=== PATIENT | female | born 1990 ===

== ENCOUNTER 2016-12-30 10:07 | Emergency (ER) | payer MEDICAID, OTHER ==
[2016-12-30 10:26] VITALS: BP 115/78; PULSE 82; RESP 18; TEMP 97.8; O2SAT 97
[2016-12-30] MEDS ORDERED: Lidocaine/Prilocaine 2.5%-2.5% Cream (5 gm) TOP STA (10:53)
--- NOTE | 2016-12-30 12:04 | C.PDOC ---
History Of Present Illness Pt c/o painful lesion on right inner thigh that she noticed yesterday. Time Seen by Provider: 12/30/16 10:38 Chief Complaint (Nursing): Abnormal Skin Integrity History Per: Patient Onset/Duration Of Symptoms: Days (1) Current Symptoms Are (Timing): Still Present Location Of Injury: Right: Thigh Quality Of Symptoms: Painful, Swollen Severity: Mild Additional History Per: Prior Records Past Medical History Reviewed: Historical Data, Nursing Documentation, Vital Signs Vital Signs: Last Vital Signs Temp 97.8 F 12/30/16 10:23 Pulse 82 12/30/16 10:23 Resp 18 12/30/16 10:23 BP 115/78 12/30/16 10:23 Pulse Ox 97 12/30/16 10:23 - Medical History PMH: Kidney Stones Family History: States: Unknown Family Hx - Social History Hx Tobacco Use: No Hx Alcohol Use: No Hx Substance Use: No - Immunization History Hx Tetanus Toxoid Vaccination: Yes Hx Influenza Vaccination: No Hx Pneumococcal Vaccination: No Review Of Systems Except As Marked, All Systems Reviewed And Found Negative. Constitutional: Negative for: Fever, Chills, Weakness Cardiovascular: Negative for: Chest Pain Respiratory: Negative for: Shortness of Breath Gastrointestinal: Negative for: Vomiting, Abdominal Pain Musculoskeletal: Negative for: Neck Pain Neurological: Negative for: Weakness, Numbness, Seizures, Altered Mental Status Physical Exam - Physical Exam Appears: Non-toxic, No Acute Distress Skin: Normal Color, Warm, Dry, No Rash Head: Atraumatic, Normacephalic Eye(s): bilateral: Normal Inspection, PERRL, EOMI Neck: Normal ROM, Supple Gastrointestinal/Abdominal: Soft, No Tenderness Extremity: Normal ROM, Other (very small abscess on right inner this with scab formation and surrounding erythema. ) Neurological/Psych: Oriented x3, Normal Motor, Normal Sensation ED Course And Treatment - Laboratory Results Urine POC: Negative O2 Sat by Pulse Oximetry: 97 Pulse Ox Interpretation: Normal Reassessment Condition: Improved - Incision & Drainage Of Abscess Prep Used: Betadine Procedure: Incised W/Scalpel Blade#: (11), Drained Pus, Cultures Obtained And Sent To Lab Disposition Counseled Patient/Family Regarding: Diagnosis, Need For Followup, Rx Given - Disposition Referrals: Abdulaziz Villa MD [Staff Provider] - Disposition: HOME/ ROUTINE Disposition Time: 12:05 Condition: IMPROVED Additional Instructions: Follow up with your doctor within 2-3 days. Return to the ER if you develop fever, chills, area of infection is getting bigger, worsening o symptoms or if you have any other concerns. Prescriptions: Sulfamethoxazole/Trimethoprim [Bactrim DS 800 mg-160 mg] 1 tab PO BID #14 tab Instructions: Abscess Incision and Drainage (ED) - Clinical Impression Clinical Impression: Abscess of right thigh
== END 2016-12-30 12:15 | disposition home or self-care (01) ==
LOC: C.ER 10:07
DX: L02.415 Cutaneous abscess of right lower limb (principal)

== ENCOUNTER 2017-07-14 10:04 | Emergency (ER) | payer MEDICAID, OTHER ==
[2017-07-14 10:09] VITALS: BP 118/78; PULSE 88; RESP 20; TEMP 98.1; O2SAT 99
--- NOTE | 2017-07-14 10:53 | RAD ---
HISTORY: r/o infiltrate COMPARISON: None available. TECHNIQUE: Chest PA and lateral FINDINGS: Examination limited by habitus. LUNGS: No focal consolidation. Please note that chest x-ray has limited sensitivity for the detection of pulmonary masses. PLEURA: No significant pleural effusion identified. No definite pneumothorax . CARDIOVASCULAR: Heart size appears within normal limits. OSSEOUS STRUCTURES: Mild degenerative changes. VISUALIZED UPPER ABDOMEN: Unremarkable. OTHER FINDINGS: None. IMPRESSION: No focal consolidation, significant pleural effusion, or definite pneumothorax identified.
--- NOTE | 2017-07-14 13:59 | C.PDOC ---
History Of Present Illness 26 y/o female presents to ED with complaints of productive cough with yellow phlegm for 3 days. Patient reports chills and nausea but denies sick contacts, vomiting, diarrhea or any other complaints at this time. Time Seen by Provider: 07/14/17 10:12 Chief Complaint (Nursing): Cough, Cold, Congestion History Per: Patient History/Exam Limitations: no limitations Onset/Duration Of Symptoms: Days Current Symptoms Are (Timing): Still Present Past Medical History Reviewed: Historical Data, Nursing Documentation, Vital Signs Vital Signs: Last Vital Signs Temp 98.1 F 07/14/17 10:07 Pulse 88 07/14/17 10:07 Resp 20 07/14/17 10:07 BP 118/78 07/14/17 10:07 Pulse Ox 99 07/14/17 13:59 - Medical History PMH: Kidney Stones Surgical History: No Surg Hx Family History: States: No Known Family Hx - Social History Hx Tobacco Use: No Hx Alcohol Use: No Hx Substance Use: No - Immunization History Hx Tetanus Toxoid Vaccination: Yes Hx Influenza Vaccination: No Hx Pneumococcal Vaccination: No Review Of Systems Except As Marked, All Systems Reviewed And Found Negative. Constitutional: Positive for: Chills. Negative for: Fever Cardiovascular: Negative for: Chest Pain Respiratory: Positive for: Cough. Negative for: Shortness of Breath Gastrointestinal: Positive for: Nausea. Negative for: Vomiting Skin: Negative for: Rash Neurological: Negative for: Weakness, Numbness Physical Exam - Physical Exam Appears: Non-toxic Skin: Warm, Dry, No Rash Head: Atraumatic, Normacephalic Eye(s): bilateral: Normal Inspection Nose: Normal Oral Mucosa: Moist Throat: Normal, No Erythema Neck: Normal ROM, Supple Chest: Symmetrical Cardiovascular: Rhythm Regular, No Murmur Respiratory: Normal Breath Sounds, No Rales, No Rhonchi, No Wheezing Gastrointestinal/Abdominal: Soft, No Tenderness, No Guarding, No Rebound Neurological/Psych: Oriented x3 ED Course And Treatment O2 Sat by Pulse Oximetry: 99 (RA) Pulse Ox Interpretation: Normal Disposition - Disposition Disposition: HOME/ ROUTINE Disposition Time: 10:50 Condition: GOOD Additional Instructions: Thank you for letting us take care of you today. Your provider was Dr. Navarrete. You were treated for an upper respiratory infection. The emergency medical care you received today was directed at your acute symptoms. If you were prescribed any medication, please fill it and take as directed. It may take several days for your symptoms to resolve. Return to the Emergency Department if your symptoms worsen, do not improve, or if you have any other problems. Please contact your doctor or call one of the physicians/clinics you have been referred to that are listed on the Patient Visit Information form that is included in your discharge packet. Bring any paperwork you were given at discharge with you along with any medications you are taking to your follow up visit. Our treatment cannot replace ongoing medical care by a primary care provider (PCP) outside of the emergency department. Thank you for allowing the [facility] team to be part of your care today. Followup with your doctor in 2-3 days for re-evaluation and further management. Prescriptions: Azithromycin [Zithromax] 250 mg PO DAILY #6 tab Instructions: Upper Respiratory Infection (ED) Forms: [employer] (Bhutanese), Work Excuse - Clinical Impression Clinical Impression: Upper respiratory infection - Scribe Statement The provider has reviewed the documentation as recorded by the Mahesh Rowe All medical record entries made by the Dorianibmame were at my direction and personally dictated by me. I have reviewed the chart and agree that the record accurately reflects my personal performance of the history, physical exam, medical decision making, and the department course for this patient. I have also personally directed, reviewed, and agree with the discharge instructions and disposition.
== END 2017-07-14 11:20 | disposition home or self-care (01) ==
LOC: C.ER 10:04
DX: J06.9 Acute upper respiratory infection, unspecified (principal)

== ENCOUNTER 2018-01-25 12:44 | Emergency (ER) | payer MEDICAID, OTHER ==
[2018-01-25 13:12] VITALS: BP 105/74; PULSE 82; RESP 18; TEMP 98.2; O2SAT 100
== END 2018-01-25 15:24 | disposition left against medical advice (07) ==
LOC: C.ER 12:44
DX: Z02.89 Encounter for other administrative examinations (principal); R10.9 Unspecified abdominal pain

== ENCOUNTER 2018-02-28 09:58 | Emergency (ER) | payer MEDICAID, OTHER ==
[2018-02-28 11:24] LABS: HCG,QUALITATIVE URINE NEGATIVE (NEGATIVE)
[2018-02-28 11:36] LABS: BASO # 0.1 K/uL (0.0-0.2); BASO % 1.1 % (0.0-2.0); EOS # 0.2 K/uL (0.0-0.7); EOS % 4.3 % (0.0-4.0); HEMOGLOBIN 12.4 g/dL (11.0-16.0); LYMPH # 1.5 K/uL (1.0-4.3); LYMPH % 30.5 % (20.0-40.0); MEAN CORPUSCULAR HEMOGLOBIN 28.8 pg (27.0-31.0); MEAN CORPUSCULAR HGB CONC 34.3 g/dL (33.0-37.0); MONO # 0.3 K/uL (0.0-0.8); MONO % 5.5 % (0.0-10.0); NEUT # 2.8 K/uL (1.8-7.0); NEUT % 58.6 % (50.0-75.0); NRBC % 0.1 % (0.0-2.0); RBC 4.31 Mil/uL (3.80-5.20); RED CELL DISTRIBUTION WIDTH 14.2 % (11.5-14.5); WHITE BLOOD COUNT 4.9 K/uL (4.8-10.8)
--- NOTE | 2018-02-28 11:40 | RAD ---
PROCEDURE: CHEST RADIOGRAPH, 1 VIEW HISTORY: Abdominal pain COMPARISON: Comparison chest 07/14/2017. FINDINGS: LUNGS: Low lung volumes with crowded bronchovascular markings and mild bibasilar atelectasis. PLEURA: No pneumothorax or pleural fluid seen. CARDIOVASCULAR: Normal. OSSEOUS STRUCTURES: No significant abnormalities. VISUALIZED UPPER ABDOMEN: Normal. OTHER FINDINGS: None. IMPRESSION: Low lung volumes with crowded bronchovascular markings and mild bibasilar atelectasis.
[2018-02-28 11:45] LABS: ALB/GLOB RATIO 1.5 (1.0-2.1); ALBUMIN 4.5 g/dL (3.5-5.0); ALT/SGPT 8 U/L (9-52); AST/SGOT 21 U/L (14-36); BLOOD UREA NITROGEN 8 mg/dL (7-17); CALCIUM 9.2 mg/dl (8.6-10.4); GFR AFRICAN-AMERICAN > 60; GFR NON-AFRICAN AMERICAN > 60; LIPASE 87 U/L (23-300)
[2018-02-28 11:48] LABS: SQUAMOUS EPITHIAL 5 /hpf (0-5); URINE BACTERIA RARE (<OCC); URINE BILIRUBIN NEGATIVE (NEGATIVE); URINE BLOOD NEGATIVE (NEGATIVE); URINE CLARITY Hazy (Clear); URINE COLOR Yellow (YELLOW); URINE GLUCOSE (UA) NORMAL (Normal); URINE LEUKOCYTE ESTERASE TRACE Leu/uL (Negative); URINE PROTEIN NEGATIVE (NEGATIVE); URINE UROBILINOGEN NORMAL mg/dL (0.2-1.0)
[2018-02-28 13:04] VITALS: BP 95/64; PULSE 72; RESP 18; TEMP 98; O2SAT 100
--- NOTE | 2018-02-28 13:21 | C.PDOC ---
History Of Present Illness 27-year-old female, presents to the emergency department with complaints of sharp left-sided abdominal pain, that started last night. Pain worsens with movement. Patient denies any nausea, vomiting or diarrhea, dysuria or any other associated symptoms. No other complaints at this time. Time Seen by Provider: 02/28/18 10:35 Chief Complaint (Nursing): Abdominal Pain History Per: Patient History/Exam Limitations: no limitations Current Symptoms Are (Timing): Still Present Severity: Moderate Past Medical History Reviewed: Historical Data, Nursing Documentation, Vital Signs Vital Signs: Last Vital Signs Temp 98.0 F 02/28/18 13:03 Pulse 72 02/28/18 13:03 Resp 18 02/28/18 13:03 BP 95/64 L 02/28/18 13:03 Pulse Ox 100 02/28/18 13:57 - Medical History PMH: Kidney Stones Family History: States: No Known Family Hx - Social History Hx Tobacco Use: No Hx Alcohol Use: No Hx Substance Use: No - Immunization History Hx Tetanus Toxoid Vaccination: Yes Hx Influenza Vaccination: No Hx Pneumococcal Vaccination: No Review Of Systems Constitutional: Negative for: Fever Respiratory: Negative for: Shortness of Breath Gastrointestinal: Positive for: Abdominal Pain. Negative for: Nausea, Vomiting Musculoskeletal: Negative for: Back Pain Neurological: Negative for: Weakness, Numbness, Headache, Dizziness Physical Exam - Physical Exam Appears: Non-toxic, No Acute Distress Skin: Normal Color, Warm, Dry, No Rash Head: Normacephalic Eye(s): bilateral: PERRL Nose: Normal Oral Mucosa: Moist Lips: Normal Appearing Neck: Normal ROM Chest: Symmetrical, No Tenderness, No Ecchymosis, No Subcutaneous Emphysema Cardiovascular: Rhythm Regular, No Murmur Respiratory: Normal Breath Sounds, No Accessory Muscle Use Gastrointestinal/Abdominal: Bowel Sounds (active), Soft, No Tenderness, No Guarding, No Rebound Back: Normal Inspection, No CVA Tenderness Extremity: Normal ROM, No Deformity, No Swelling Neurological/Psych: Oriented x3, Normal Speech, Normal Motor Gait: Steady ED Course And Treatment - Laboratory Results Result Diagrams: 02/28/18 11:28 02/28/18 11:28 O2 Sat by Pulse Oximetry: 100 (RA) Pulse Ox Interpretation: Normal Medical Decision Making Medical Decision Making: Plan: * Bloodwork * Chest X-Ray * UA * Reassess and Disposition Labs and physical exam is negative at this time. Results were informed and given to the patient. On re-exam, the patient reports improvement of symptoms. Lungs are CTA, heart is RRR, abdomen is soft, non-tender and tolerating PO well. Ambulatory in the ED with steady gait. Disposition - Disposition Referrals: [facility] at [facility] [Outside] Abdulaziz Villa MD [Staff Provider] - Disposition: HOME/ ROUTINE Disposition Time: 13:00 Condition: GOOD Additional Instructions: Follow up with the medical doctor within 1-2 days. Return if worsened. Prescriptions: Naproxen [Naprosyn] 500 mg PO BID #20 tab Instructions: Costochondritis Forms: [facility] (Afghan), Work Excuse - Clinical Impression Clinical Impression: Abdominal wall pain - Scribe Statement The provider has reviewed the documentation as recorded by the Scribe (Jimi Mary) All medical record entries made by the Scribe were at my direction and personally dictated by me. I have reviewed the chart and agree that the record accurately reflects my personal performance of the history, physical exam, medical decision making, and the department course for this patient. I have also personally directed, reviewed, and agree with the discharge instructions and disposition.
== END 2018-02-28 14:14 | disposition home or self-care (01) ==
LOC: C.ER 09:58
DX: R10.9 Unspecified abdominal pain (principal)

== ENCOUNTER 2018-11-07 10:51 | Emergency (ER) | payer SELFPAY ==
[2018-11-07 11:20] VITALS: O2SAT 100
[2018-11-07] MEDS ORDERED: Alum-Mag Hydrox-Simethicone Susp (30 mL) PO STA (11:37)
[2018-11-07 12:08] LABS: HCG,QUALITATIVE URINE NEGATIVE (NEGATIVE)
[2018-11-07 12:15] LABS: SQUAMOUS EPITHIAL 8 /hpf (0-5); URINE BACTERIA RARE (<OCC); URINE BILIRUBIN NEGATIVE (NEGATIVE); URINE BLOOD NEGATIVE (NEGATIVE); URINE CLARITY Hazy (Clear); URINE COLOR Yellow (YELLOW); URINE GLUCOSE (UA) NORMAL (Normal); URINE LEUKOCYTE ESTERASE TRACE Leu/uL (Negative); URINE PROTEIN NEGATIVE (NEGATIVE); URINE UROBILINOGEN NORMAL mg/dL (0.2-1.0)
[2018-11-07] MEDS ORDERED: Alum-Mag Hydrox-Simethicone Susp (30 mL) ONE (12:16)
--- NOTE | 2018-11-07 12:16 | C.PDOC ---
History Of Present Illness 17 year old female presents to ED with complaint of loose stools and lower abdominal stomach cramps and discomfort for the past 3 days. Patient took Maalox for relief with no improvements. Patient has past surgical history of tubal ligation, and wants to check if she is . Patient denies fever, chills, diarrhea, vomiting, and nausea. Time Seen by Provider: 11/07/18 11:31 Chief Complaint (Nursing): Female Genitourinary History Per: Patient History/Exam Limitations: no limitations Onset/Duration Of Symptoms: Days (3) Current Symptoms Are (Timing): Still Present Location Of Pain: Other (lower abdomen) Associated Symptoms: Other (loose stools and cramps in lower abdomen). denies: Fever, Chills, Nausea, Vomiting, Diarrhea Past Medical History Reviewed: Historical Data, Nursing Documentation, Vital Signs Vital Signs: Last Vital Signs Temp 97.4 F L 11/07/18 11:17 Pulse 78 11/07/18 11:17 Resp 201 H 11/07/18 11:17 BP 110/68 11/07/18 11:17 Pulse Ox 100 11/07/18 11:17 - Medical History PMH: Kidney Stones Other Surgeries: Tubal ligation Family History: States: Unknown Family Hx - Social History Hx Tobacco Use: No Hx Alcohol Use: No Hx Substance Use: No - Immunization History Hx Tetanus Toxoid Vaccination: Yes Hx Influenza Vaccination: No Hx Pneumococcal Vaccination: No Review Of Systems Constitutional: Negative for: Fever, Chills Gastrointestinal: Positive for: Abdominal Pain, Other (Loose stools). Negative for: Nausea, Vomiting, Diarrhea Physical Exam - Physical Exam Appears: Well, Non-toxic, No Acute Distress Skin: Normal Color, Warm, Dry Head: Atraumatic, Normacephalic Oral Mucosa: Moist Neck: Supple Gastrointestinal/Abdominal: Soft, No Tenderness, No Guarding, No Rebound, Other (negative Mann's sign and McBurney's point tenderness) Pelvic: No Adnexal Tenderness Extremity: Capillary Refill (less than 2 seconds ) Neurological/Psych: Oriented x3, Normal Speech, Normal Cognition ED Course And Treatment - Laboratory Results Lab Results: Urine Color Yellow (YELLOW) 11/07/18 11:49 Urine Clarity Hazy (Clear) 11/07/18 11:49 Urine pH 6.0 (5.0-8.0) 11/07/18 11:49 Ur Specific Icard 1.018 (1.003-1.030) 11/07/18 11:49 Urine Protein Negative mg/dL (NEGATIVE) 11/07/18 11:49 Urine Glucose (UA) Normal mg/dL (Normal) 11/07/18 11:49 Urine Ketones Negative mg/dL (NEGATIVE) 11/07/18 11:49 Urine Blood Negative (NEGATIVE) 11/07/18 11:49 Urine Nitrate Negative (NEGATIVE) 11/07/18 11:49 Urine Bilirubin Negative (NEGATIVE) 11/07/18 11:49 Urine Urobilinogen Normal mg/dL (0.2-1.0) 11/07/18 11:49 Ur Leukocyte Esterase Trace Harris/uL (Negative) 11/07/18 11:49 Urine WBC (Auto) 3 /hpf (0-5) 11/07/18 11:49 Urine RBC (Auto) 1 /hpf (0-3) 11/07/18 11:49 Ur Squamous Epith Cells 8 /hpf (0-5) H 11/07/18 11:49 Urine Bacteria Rare (<OCC) 11/07/18 11:49 Urine HCG, Qual Negative (NEGATIVE) 11/07/18 11:49 Urine HCG, Qual Negative (NEGATIVE) 11/07/18 11:49 O2 Sat by Pulse Oximetry: 100 Progress Note: Maalox PO and Motrin PO given to patient. Urinalysis ordered and reviewed. Upon reassessment, patient is resting comfortably, in no distress, remains afebrile, and reports an improvement in symptoms. Patient is advised to follow up with PMD in 1-2 days. Patient is advised to return to ED if symptoms persist or worsen. Medical Decision Making Medical Decision Making: loose stools, crampy lower abd discomfort c/w viral GI Ua/Preg neg. Disposition Doctor Will See Patient In The: Office Counseled Patient/Family Regarding: Studies Performed, Diagnosis - Disposition Referrals: Abdulaziz Villa MD [Staff Provider] - Disposition: HOME/ ROUTINE Disposition Time: 12:16 Condition: GOOD Additional Instructions: continue Maalox 30 cc's (one tablespoon) 5x/day for abd discomforts motrin/Advil 400 mg every 6 hours as needed for discomforts Urinalysis and tests are NEGATIVE today Instructions: Diarrhea in Adolescents and Adults Forms: Work/School/Gym Excuse, [facility] (Sinhala) - Clinical Impression Clinical Impression: Diarrhea - Scribe Statement The provider has reviewed the documentation as recorded by the Scribe (Earlene Macario) Provider Attestation: All medical record entries made by the Scribe were at my direction and personally dictated by me. I have reviewed the chart and agree that the record accurately reflects my personal performance of the history, physical exam, medical decision making, and the department course for this patient. I have also personally directed, reviewed, and agree with the discharge instructions and disposition.
[2018-11-07 12:26] VITALS: BP 107/72; PULSE 83; RESP 18; TEMP 98.3
== END 2018-11-07 12:26 | disposition home or self-care (01) ==
LOC: C.ER 10:51
DX: R19.7 Diarrhea, unspecified (principal)

== ENCOUNTER 2018-12-01 10:59 | Emergency (ER) | payer SELFPAY | END 2018-12-01 14:17 | disposition home or self-care (01) | LOC: C.ER 10:59 ==